=== PATIENT | female | born 2000 | race Caucasian/White ===

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

== ENCOUNTER 2021-02-23 19:45 | Emergency (ER) | payer SELFPAY ==
[2021-02-23 19:49] VITALS: BP 116/83; PULSE 77; RESP 16; TEMP 36.5; O2SAT 100; BMI 26.5
--- NOTE | 2021-02-23 19:50 | W.ED.DENTAL ---
HPI - Dental/Oral General: Chief complaint: Dental/Oral Stated complaint: TOOTHACHE Time Seen by Provider: 02/23/21 19:50 Source: patient Mode of arrival: ambulatory Limitations: no limitations History of Present Illness: HPI Narrative: Patient is a 20-year-old female who presents to ED today with complaint of dental pain. Patient states pain has been present over the past few weeks. She states pain is located to her bilateral upper and lower molars. She states pain bounces from side to side . She has known impacted wisdom teeth. She has a dental appointment on Wednesday. No facial swelling or neck swelling. She is continuing to eat and drink well. Here because pain continues to worsen. States she has tried literally everything at home to help with pain. MD Complaint: tooth pain Onset (ago): week(s) Duration: constant Relieving factors: nothing Exacerbating factors: nothing Context: history of dental caries Associated symptoms: Reports no associated symptoms; Denies fever(s) or odynophagia Review of Systems Const: Denies: fever(s) Eyes: Denies: change in vision ENMT: Reports: dental pain; Denies: throat pain, odynophagia, swelling of lips/tongue, oral sores or bleeding gums Card: Denies: chest pain Resp: Denies: dyspnea GI: Denies: nausea or vomiting Musc: Denies: neck pain Skin/Breast: Denies: rash Neuro: Denies: headache(s) PFS ED PFSH: Social History Smoking and tobacco status: never smoked Alcohol intake: never Current occupation: PT GOT RIGHT HAND SHUT IN CAR DOOR Physical Exam Const: COMMON NORMALS: no acute distress, average body habitus, patient oriented x3, no limitations, healthy appearing, alert and well nourished HENMT: FACE & SINUS: normal facial exam MOUTH: Normal oral and palatal mucosa present, lip normal, tongue normal and Normal salivary glands and ducts present; no audible dysphonia, no drooling and no muffled voice TEETH & GINGIVA: Yes caries, Yes poor dentition and Yes other (bilateral lower wisdom tooth impaction ) TEETH & GINGIVA IMAGES: 1. broken decayed molar THROAT: posterior oropharynx normal, tonsils normal and uvula midline OTHER: no swelling/abscess noted Neck/C-Spine: COMMON NORMALS: full ROM and no lymphadenopathy Cardio: COMMON NORMALS: regular rate and regular rhythm RATE: regular rate RHYTHM: regular rhythm Neuro: COMMON NORMALS: patient oriented x3 SENSORIUM/ORIENTATION: Yes alert Skin: COMMON NORMALS: no rashes or lesions noted GENERAL SKIN EXAM: no rashes or lesions noted Course Vital Signs: Vital signs: Vital Signs Temperature 97.7 F 02/23/21 19:49 Pulse Rate 76 02/23/21 20:05 Respiratory Rate 16 02/23/21 20:05 Blood Pressure 107/72 02/23/21 20:05 Pulse Oximetry 100 02/23/21 20:05 MDM - Dental/Oral MDM Narrative: Medical decision making narrative: Recommend following up with dentist on Wednesday as scheduled. Discharge Plan Discharge Patient Disposition: Home Clinical Impression: Toothache, Impacted molar Condition: Stable Prescriptions: New penicillin V potassium 500 mg tablet 500 mg PO Q8H 7 Days Qty: 21 RF: 0 diclofenac sodium 50 mg tablet,delayed release (DR/EC) 50 mg PO Q12H PRN (Reason: pain) Qty: 20 RF: 0 Discontinued naproxen 500 mg tablet 500 mg PO BID 10 Days Qty: 20 RF: 0 No Action baclofen 10 mg tablet 10 mg PO BID PRN (Reason: shoulder pain) 7 Days Qty: 14 RF: 0 prednisone 20 mg tablet 20 mg PO BID 5 Days Qty: 10 RF: 0 Discharge Orders: Discharge ED (Routine); Ordered 02/23/21 Ordered By: Jojo Anguiano Referrals: Ismael Vizcaino, WASHROOM ATTENDANT [Primary Care Provider] - Patient Instructions: Dental Caries (ED), Toothache (ED) Coding Level of Care Code ED Mobile Development Manager for Araseli Alvarado
[2021-02-23 20:05] VITALS: BP 107/72; PULSE 76; RESP 16; O2SAT 100
== END 2021-02-23 20:06 | disposition home or self-care (01) ==
LOC: ER 20:00
PROVIDERS: Emergency Provider Physician Assistant; PCP Registered Nurse
DX: K08.89 Other specified disorders of teeth and supporting structures (principal); K01.1 Impacted teeth
CPT/HCPCS: 99281